=== PATIENT | female | born 1945 | race Caucasian/White ===

== ENCOUNTER 2016-11-08 17:15 | Inpatient (IN) | payer OTHER ==
[~2016-11-08] VITALS: Ht 162.6 cm; Wt 97.3 kg
[2016-11-08 17:42] LABS: HEMATOCRIT 42.2 % (36.0-46.0); MCH 29.9 PG (29.0-34.0); MCHC 33.2 G/DL (30.0-36.0); MCV 90.2 FL (83-99); MEAN PLAT.VOLUME 9.4 uM^3 (9.5-12.4); PLATELET COUNT 604 K/uL (156-360); RBC DIS.WIDTH-CV 14.6 % (11.8-14.6); RBC DIS.WIDTH-SD 48.6 % (39-53); RED BLOOD COUNT 4.68 M/uL (3.80-5.20); WHITE BLOOD COUNT 11.3 K/uL (4.1-10.2)
[2016-11-08 17:53] LABS: CHLORIDE 109 mEq/L (99-109); POTASSIUM 4.2 mEq/L (3.7-5.4)
[2016-11-08 17:54] LABS: SODIUM 139 mEq/L (136-147)
[2016-11-08 17:56] LABS: GLUCOSE 118 mg/dL (70-99)
[2016-11-08 17:57] LABS: ANION GAP 8 MEQ/L (2-14)
[2016-11-08 17:58] LABS: TOTAL BILIRUBIN 0.3 mg/dL (0.0-1.0)
[2016-11-08 17:59] LABS: ALKALINE PHOSPHATASE 90 IU/L (3-129)
[2016-11-08 18:00] LABS: GFR ESTIMATE (CALCULATED) 58 mL/min/
[2016-11-08 18:01] LABS: UREA NITROGEN (BUN) 15 mg/dL (9-23)
[2016-11-08 18:26] LABS: INTER. NORMALIZED RATIO 1.1; PROTHROMBIN TIME 10.8 (9.2-11.2)
[2016-11-08 20:18] LABS: ADD MIUA? NO; BILIRUBIN NEGATIVE; BLOOD NEGATIVE; COLOR STRAW ((YELLOW)); GLUCOSE (STRIP) NEGATIVE; KETONES NEGATIVE; LEUKOCYTES NEGATIVE; NITRITE NEGATIVE; PROTEIN (STRIP) NEGATIVE; SPECIFIC GRAVITY 1.003 (1.000-1.030); UCUL ADDED? NO; UROBILINOGEN 0.2 MG/DL (0.2-1.0)
[2016-11-08] MEDS ORDERED: LOSARTAN PO (20:18)
[2016-11-08] MEDS ORDERED: DILTIAZEM PO (20:20)
[2016-11-08] MEDS ORDERED: RANITIDINE HCL300 MG PO (20:21)
[2016-11-08] MEDS ORDERED: LOSARTAN POTASS25 MG PO (21:56)
[2016-11-08] MEDS ORDERED: CARDIZEM120 MG PO (21:57)
[2016-11-08] MEDS ORDERED: BLINK EYE DROPS BOTH EYES (21:58)
[2016-11-08] MEDS ORDERED: BLINK RIGHT EYE (21:59)
[2016-11-08] MEDS ORDERED: BLINK LEFT EYE (21:59)
[2016-11-08] MEDS ORDERED: CINNAMON500 MG PO (22:08)
[2016-11-08] MEDS ORDERED: TUMMERIC PO (22:09)
[2016-11-08] MEDS ORDERED: VITAMIN B-123000 MCG SL (22:09)
[2016-11-09 00:04] VITALS: BP 170/80
[2016-11-09 00:33] VITALS: BP 156/73
[2016-11-09 03:58] VITALS: BP 142/65
[2016-11-09 06:32] LABS: MCH 30.3 PG (29.0-34.0); MCV 91.9 FL (83-99); MEAN PLAT.VOLUME 10.2 uM^3 (9.5-12.4); PLATELET COUNT 683 K/uL (156-360); RBC DIS.WIDTH-CV 14.8 % (11.8-14.6); RBC DIS.WIDTH-SD 49.9 % (39-53); RED BLOOD COUNT 4.68 M/uL (3.80-5.20); WHITE BLOOD COUNT 13.6 K/uL (4.1-10.2)
[2016-11-09 06:58] LABS: HDL CHOLESTEROL 49 MG/DL (Desirable>=50); LDL CHOLESTEROL 129 mg/dL (Desirable<100); NON-HDL CHOLESTEROL 183 mg/dL (Desirable<160); TOTAL CHOLESTEROL 232 mg/dL (Desirable<200); TRIGLYCERIDES 271 MG/DL (Normal: <150)
[2016-11-09 08:19] VITALS: BP 144/71
[2016-11-09 12:13] VITALS: BP 149/69
[2016-11-09] MEDS ORDERED: PRAVASTATIN SOD40 MG PO (13:06)
[2016-11-09] MEDS ORDERED: LO-DOSE ASPIRIN81 M2 PO (13:06)
[2016-11-10 07:05] LABS: Estimated Average Glucose 123 mg/dL (70-123); HEMOGLOBIN A1c (GLYCOHEMOGLOB) 5.9 % HGB (Below 5.7)
== END 2016-11-09 14:52 | disposition home or self-care (01) | DRG 149 ==
LOC: EME 17:15 → EDOF 22:04 → 5SOUTH 23:39
PROVIDERS: Emergency Medicine; Hospitalist
DX: H81.49 Vertigo of central origin, unspecified ear (principal); E86.0 Dehydration; I10 Essential (primary) hypertension; I73.9 Peripheral vascular disease, unspecified; K21.9 Gastro-esophageal reflux disease without esophagitis; E66.9 Obesity, unspecified; Z68.36 Body mass index [BMI] 36.0-36.9, adult; Z82.3 Family history of stroke; Z82.5 Family history of asthma and other chronic lower respiratory diseases
CPT/HCPCS: 70450; 70551; 80053; 80061; 81003; 83036; 85027; 85610; 85651; 93005; 99281; 99285; J1650